=== PATIENT | female | born 2000 | race Caucasian/White ===

== ENCOUNTER 2023-08-03 07:39 | Day surgery (SDC) | payer OTHER ==
[~2023-08-03] VITALS: Ht 165.1 cm; Wt 50.9 kg
[~2023-08-03 07:39] MED LIST: BACITRACIN 28 GM OINTMENT TP ONE; BUPIVACAINE HCL/PF 0.25% 30 ML VIAL ONE; BUPIVACAINE HCL/PF 0.5% 30 ML VIAL ONE; BUPIVACAINE LIPOSOME/PF 1.3%-13.3MG/ML SUSPENSION 10 ML VIAL INJ ONE; CeFAZolin 2 GM/DEXTROSE 50 ML IV ONE; ETHYL ALCOHOL 62% ANTISEPTIC NASAL SANITIZER 0.6 ML AMPUL NASAL ONE; MICROFIBRILLAR COLLAGEN 1 GM PACKAGE TP ONE; MUPIROCIN CALCIUM 2% 22 GM OINTMENT ONE; OXYC1TAB6 PO; RINGERS SOLUTION,LACTATED 1,000 ML IV ONE; SODIUM CL IRRIG SOLN BAG 3,000 ML IRRIG ONE; VANCOMYCIN HCL 1 GM/VIAL ONE
[2023-08-03] MEDS ORDERED: CeFAZolin 1 GM/DEXTROSE 50 ML IV ONE (08:05)
[2023-08-03] MEDS ORDERED: ACETAMINOPHEN 1000 MG/ISO-OSM 100 ML IV ONE ×2 (08:20→08:30)
[2023-08-03] MEDS ORDERED: HYDROmorphone HCL 2 MG/ML SYRINGE ONE (08:27)
[2023-08-03] MEDS: HYDROmorphone HCL 2 MG/ML SYRINGE IVP PRN ×5 (08:28→09:11)
[2023-08-03] MEDS ORDERED: FentaNYL CITRATE PF 100 MCG/2 ML VIAL IVP PRN (08:30)
[2023-08-03] MEDS ORDERED: MEPERIDINE-PF 25 MG/ML VIAL IVP PRN (08:30)
[2023-08-03] MEDS ORDERED: FentaNYL CITRATE PF 100 MCG/2 ML VIAL ONE (09:21)
[2023-08-03] MEDS ORDERED: HYDR25TA2 PO (09:42)
[2023-08-03] MEDS ORDERED: EXEN2AUT SQ (09:42)
[2023-08-03] MEDS ORDERED: ALBU18HF12 IH (09:43)
[2023-08-03] MEDS ORDERED: OxyCODONE HCL/ACETAMINOPHEN 10-325 MG TABLET PO ONE (09:45)
[2023-08-03] MEDS ORDERED: ROCURONIUM BROMIDE 10 MG/ML 5 ML VIAL IVP ONE (10:26)
[2023-08-03] MEDS ORDERED: SUGAMMADEX SODIUM 200 MG/2 ML VIAL IVP ONE (10:26)
[2023-08-03] MEDS ORDERED: ONDANSETRON HCL 4 MG/2 ML VIAL IVP ONE (10:26)
[2023-08-03] MEDS ORDERED: CeFAZolin SODIUM 1 GM VIAL IVP ONE (10:26)
[2023-08-03] MEDS ORDERED: GLYCOPYRROLATE 0.2 MG/ML VIAL IM ONE (10:26)
[2023-08-03] MEDS ORDERED: FentaNYL CITRATE PF 100 MCG/2 ML VIAL IVP ONE (10:26)
[2023-08-03] MEDS ORDERED: DEXAMETHASONE SOD PHOS 4 MG/ML VIAL IVP ONE (10:26)
[2023-08-03] MEDS ORDERED: MIDAZOLAM HCL 2 MG/2 ML VIAL IVP ONE (10:26)
[2023-08-03] MEDS ORDERED: PROPOFOL 1% 20 ML VIAL IVP ONE (10:26)
[2023-08-03] MEDS ORDERED: LIDOCAINE/PF 2% 5 ML VIAL IM ONE (10:26)
[2023-08-03] MEDS ORDERED: CeFAZolin 1 GM/DEXTROSE 50 ML IV SCH (16:00)
[2023-08-03] MEDS ORDERED: OXYGEN THERAPY IH SCH (20:00)
== END 2023-08-03 10:27 | disposition home or self-care (01) ==
LOC: SURGERY 07:39 → UNDODISIN 10:27
PROVIDERS: ATTEND Orthopaedic Surgery
DX: S62.102A Fracture of unspecified carpal bone, left wrist, initial encounter for closed fracture (principal); X58.XXXA Exposure to other specified factors, initial encounter; Y93.89 Activity, other specified; Y92.89 Other specified places as the place of occurrence of the external cause; Y99.8 Other external cause status
CPT/HCPCS: 84703; 87081; 25651; 25608; J3490 ×4; J2704; J0690 ×2; J1100; J3010; J1170; J2250; J2405; J3370; Q9967; J7120; J0131; C1713; C1776; G0378